=== PATIENT | female | born 1975 | race Caucasian/White ===

== ENCOUNTER 2020-11-10 22:13 | Emergency (ER) | payer SELFPAY ==
[~2020-11-10] VITALS: Ht 175.3 cm; Wt 118.0 kg
[2020-11-10 22:27] VITALS: BP 117/66
[2020-11-11 01:53] LABS: BASOPHILS % 1.2 % (0.0-2.0); EOSINOPHILS % 6.7 % (0.0-5.0); HEMATOCRIT. 31.8 % (36.0-48.0); HEMOGLOBIN. 9.7 g/dL (12.0-16.0); LYMPHOCYTES % 33.9 % (20.0-50.0); MEAN CORPUSCULAR HEMOGLOBIN 22.1 pg (28.0-32.0); MEAN CORPUSCULAR VOLUME 71.9 fL (81.0-99.0); MEAN PLATELET VOLUME 9.4 fl (7.4-10.4); MONOCYTES % 6.3 % (2.0-8.0); NEUTROPHILS % 51.9 % (40.0-76.0); PLATELET 226 x1000/uL (130-400); RED BLOOD CELL COUNT 4.41 mill/uL (4.2-5.4); RED CELL DISTRIBUTION WIDTH 21.4 % (11.6-14.6)
[2020-11-11 02:01] LABS: CHLORIDE 110 mEq/L (98-107)
== END 2020-11-11 01:01 | disposition home or self-care (01) ==
LOC: ER 22:13
DX: R00.2 Palpitations (principal)
CPT/HCPCS: 36415; 71045; 93005; 99285